=== PATIENT | female | born 1985 | race Caucasian/White ===

== ENCOUNTER 2017-08-15 20:53 | Emergency (ER) | payer OTHER, BC ==
[~2017-08-15] VITALS: Ht 177.8 cm; Wt 90.7 kg
[~2017-08-15 20:53] MED LIST: Ocella Tablet1 EACH PO
[2017-08-17 07:15] LABS: HCV Non Reactive (NR)
== END 2017-08-15 22:00 | disposition home or self-care (01) ==
LOC: ER 20:53
PROVIDERS: Physician Assistant
DX: S61.032A Puncture wound without foreign body of left thumb without damage to nail, initial encounter (principal); Z77.21 Contact with and (suspected) exposure to potentially hazardous body fluids; Z79.899 Other long term (current) drug therapy; W46.0XXA Contact with hypodermic needle, initial encounter
CPT/HCPCS: 84460; 86706; 86803; 87389; 99283